=== PATIENT | male | born 2000 | race Caucasian/White ===

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

== ENCOUNTER 2021-12-06 14:37 | Inpatient (IN) ==
[2021-12-06 16:16] LABS: ABS Basophils 0.1 10^3/ul (0-0.2); ABS Eosinophils 0.1 10^3/ul (0-0.6); ABS Lymphocytes 1.8 10^3/ul (1.0-4.8); ABS Monocytes 0.6 10^3/ul (0-0.8); ABS Neutrophils 3.9 10^3/ul (1.5-7.7); Eosinophil % 1.7 %; Hematocrit 46 % (42-52); Hemoglobin 15.7 g/dL (14.0-18.0); Lymphocyte % 27.5 %; Mean Corpuscular HGB Conc 34 g/dL (31-36); Mean Corpuscular Hemoglobin 30 pg (27-31); Mean Corpuscular Volume 89 fL (80-94); Mean Platelet Volume 8.4 fL (7.4-10.4); Platelet Count 236 10^3/uL (150-450); Red Cell Distribution Width 14 % (10-15); White Blood Count 6.4 10^3/uL (3.5-10.8)
[2021-12-06 16:37] LABS: Urine Benzodiazepine Screen None Detected (None Detect); Urine Cannabinoids Screen Presumptive Positive (None Detect); Urine Opiates Screen None Detected (None Detect)
[2021-12-06 16:41] LABS: Urine Appearance Cloudy; Urine Bilirubin Negative (Negative); Urine Blood Trace (Intact) (Negative); Urine Color Straw; Urine Glucose Negative (Negative); Urine Ketones Negative (Negative); Urine Nitrite Negative (Negative); Urine Protein Negative (Negative); Urine Urobilinogen 0.2 (Negative) (Negative)
[2021-12-06 16:48] LABS: Urine Amorphous Crystals Present (Absent); Urine Bacteria Absent (Absent); Urine Red Blood Cell 1+(3-5/hpf) (Absent); Urine White Blood Cell Absent (Absent)
[2021-12-06 16:53] LABS: ALT 20 U/L (7-52); AST 25 U/L (13-39); Acetaminophen < 15 mcg/mL; Albumin 5.1 g/dL (3.2-5.2); Albumin/Globulin Ratio 2.1 (1-3); Alcohol, S < 13 mg/dL (<13); Alkaline Phosphatase 51 U/L (35-149); Anion Gap 9 mmol/L (2-11); Blood Urea Nitrogen 9 mg/dL (6-24); CO2 Carbon Dioxide 24 mmol/L (22-32); Chloride 105 mmol/L (101-111); Globulin 2.4 g/dL (2-4); Glucose 76 mg/dL (70-100); Potassium 4.3 mmol/L (3.5-5.0); Salicylate < 2.50 mg/dL (<30); Sodium 138 mmol/L (135-145); Total Protein 7.5 g/dL (6.4-8.9); eGFR CKD-EPI 131.1 (>60)
[2021-12-06 17:04] LABS: TSH Ultra Thyroid Stim Horm 1.04 mcIU/mL (0.34-5.60)
[2021-12-06] MEDS ORDERED: Al Hydrox/Mg Hydrox/Simet LIQ 30 ML UDC PO PRN (18:18)
[2021-12-06] MEDS: Nicotine GUM 2MG FRUIT FLAVOR PO PRN (20:38)
[2021-12-07] MEDS: Vitamin THERAPEUTIC TAB PO SCH (07:53)
[2021-12-07] MEDS: Nicotine PATCH 14 MG/24 HR PATCH TRANSDERM SCH (07:54)
[2021-12-07] MEDS: Nicotine GUM 2MG FRUIT FLAVOR PO PRN ×3 (07:55→19:04)
[2021-12-08] MEDS: Nicotine GUM 2MG FRUIT FLAVOR PO PRN ×3 (03:42→20:24)
[2021-12-08] MEDS: Vitamin THERAPEUTIC TAB PO SCH (07:35)
[2021-12-08] MEDS: Nicotine PATCH 14 MG/24 HR PATCH TRANSDERM SCH (07:36)
[2021-12-08 07:55] LABS: HDL Cholesterol 52.1 mg/dL
[2021-12-09] MEDS: Nicotine PATCH 14 MG/24 HR PATCH TRANSDERM SCH (07:18)
[2021-12-09] MEDS: Vitamin THERAPEUTIC TAB PO SCH (07:21)
[2021-12-09] MEDS: Nicotine GUM 2MG FRUIT FLAVOR PO PRN ×5 (07:22→20:47)
[2021-12-10] MEDS: Vitamin THERAPEUTIC TAB PO SCH (07:40)
[2021-12-10] MEDS: Nicotine GUM 2MG FRUIT FLAVOR PO PRN ×4 (07:40→20:11)
[2021-12-10] MEDS: Nicotine PATCH 14 MG/24 HR PATCH TRANSDERM SCH (08:59)
[2021-12-11] MEDS: Vitamin THERAPEUTIC TAB PO SCH (08:08)
[2021-12-11] MEDS: Nicotine GUM 2MG FRUIT FLAVOR PO PRN ×4 (08:09→17:29)
[2021-12-11] MEDS: Nicotine PATCH 14 MG/24 HR PATCH TRANSDERM SCH (08:10)
[2021-12-12] MEDS: Nicotine GUM 2MG FRUIT FLAVOR PO PRN ×6 (06:11→20:15)
[2021-12-12] MEDS: Vitamin THERAPEUTIC TAB PO SCH (08:30)
[2021-12-12] MEDS: Nicotine PATCH 14 MG/24 HR PATCH TRANSDERM SCH (08:31)
[2021-12-12] MEDS ORDERED: COVID-19 VACCINE, MRNA(PFIZER)/PF 30 MCG/0.3 ML IM ONE (10:30)
[2021-12-13] MEDS: Nicotine GUM 2MG FRUIT FLAVOR PO PRN ×2 (04:36→08:38)
[2021-12-13] MEDS: Vitamin THERAPEUTIC TAB PO SCH (08:37)
[2021-12-13 08:38] VITALS: BP 117/66
[2021-12-13] MEDS: Nicotine PATCH 14 MG/24 HR PATCH TRANSDERM SCH (08:38)
== END 2021-12-13 10:15 | disposition home or self-care (01) | DRG 750 ==
LOC: ED 14:37 → BSU 18:18
PROVIDERS: ADMIT Psychiatry & Neurology Psychiatry; ATTEND Psychiatry & Neurology Psychiatry

== ENCOUNTER 2023-05-23 13:00 | Inpatient (IN) ==
[2023-05-23 14:28] LABS: ABS Eosinophils 0.1 10^3/uL (0.0-0.5); ABS Lymphocytes 1.8 10^3/uL (1.0-4.8); ABS Monocytes 0.6 10^3/uL (0.0-1.1); ABS Neutrophils 5.9 10^3/uL (1.5-7.6); Eosinophil % 1.1 %; Hematocrit 44.1 % (38-53); Lymphocyte % 20.7 %; Mean Corpuscular Hemoglobin 30.5 pg (27-33); Mean Corpuscular Hgb Conc 34.1 g/dL (31-36); Mean Corpuscular Volume 89.3 fL (80-97); Mean Platelet Volume 7.5 fL (7.5-11.2); Platelet Count 233 10^3/uL (150-450); Red Blood Count 4.93 10^6/uL (4.06-5.63); Red Cell Distribution Width 13.8 % (12-17); White Blood Count 8.5 10^3/uL (3.6-10.2)
[2023-05-23 14:29] LABS: Urine Appearance Clear; Urine Bilirubin Negative (Negative); Urine Blood Negative (Negative); Urine Color Yellow; Urine Glucose Negative (Negative); Urine Ketones Negative (Negative); Urine Nitrite Negative (Negative); Urine Protein Negative (Negative); Urine Specific Gravity 1.012 (1.002-1.030); Urine Urobilinogen Negative (Negative)
[2023-05-23 14:57] LABS: ALT 24 U/L (7-52); AST 17 U/L (13-39); Albumin 4.7 g/dL (3.2-5.2); Albumin/Globulin Ratio 2.1 (1-3); Alkaline Phosphatase 52 U/L (35-149); Anion Gap 6 mmol/L (2-16); Blood Urea Nitrogen 11 mg/dL (6-24); CO2 Carbon Dioxide 28 mmol/L (22-32); Calcium 9.6 mg/dL (8.6-10.3); Chloride 103 mmol/L (101-111); Creatinine, Serum 0.77 mg/dL (0.67-1.17); Globulin 2.2 g/dL (2-4); Glucose 80 mg/dL (70-100); Potassium 3.9 mmol/L (3.5-5.0); Sodium 137 mmol/L (135-145); Total Bilirubin 0.6 mg/dL (0.2-1.0); Total Protein 6.9 g/dL (6.4-8.9); eGFR CKD-EPI 129.8 (>60)
[2023-05-23 15:26] LABS: TSH Ultra Thyroid Stim Horm 0.84 mcIU/mL (0.34-5.60)
[2023-05-23 16:14] LABS: Urine Benzodiazepine Screen None Detected (None Detect); Urine Cannabinoids Screen Presumptive Positive (None Detect); Urine Opiates Screen None Detected (None Detect)
[2023-05-23 19:32] LABS: Acetaminophen < 15 mcg/mL; Alcohol, S < 13 mg/dL (<13); Salicylate < 2.50 mg/dL (<30)
[2023-05-23] MEDS ORDERED: Nicotine Lozenge mini 2 MG LOZNG.MINI MT PRN (23:00)
[2023-05-24] MEDS: Vitamin THERAPEUTIC TAB PO SCH (09:49)
[2023-05-24] MEDS: Nicotine GUM 2MG FRUIT FLAVOR PO PRN (10:46)
[2023-05-25] MEDS: Al Hydrox/Mg Hydrox/Simet LIQ 30 ML UDC PO PRN (09:22)
[2023-05-25] MEDS: Nicotine PATCH 21 MG/24 HR PATCH TRANSDERM SCH (13:35)
[2023-05-25] MEDS: Nicotine PATCH 21 MG/24 HR PATCH ONE (15:39)
[2023-05-27 10:39] VITALS: BP 101/72
== END 2023-05-27 13:47 | disposition home or self-care (01) | DRG 885 ==
LOC: ED 13:00 → EDHOLD 22:52 → BSU 05-24 00:43
PROVIDERS: ADMIT Psychiatry & Neurology Psychiatry; ATTEND Student in an Organized Health Care Education/Training Program

== ENCOUNTER 2023-11-06 10:23 | Inpatient (IN) ==
[2023-11-06 11:56] LABS: Urine Appearance Extra Turbid; Urine Bilirubin Negative (Negative); Urine Blood Negative (Negative); Urine Color Yellow; Urine Glucose Negative (Negative); Urine Ketones Negative (Negative); Urine Nitrite Negative (Negative); Urine Protein Negative (Negative); Urine Specific Gravity 1.016 (1.002-1.030); Urine Urobilinogen 1+ (Negative); Urine pH 7.5 (5.0-8.0)
[2023-11-06 12:27] LABS: Urine Benzodiazepine Screen None Detected (None Detect); Urine Cannabinoids Screen Presumptive Positive (None Detect); Urine Opiates Screen None Detected (None Detect)
[2023-11-06] MEDS ORDERED: Al Hydrox/Mg Hydrox/Simet LIQ 30 ML UDC PO PRN (12:34)
[2023-11-06 13:30] LABS: ABS Basophils 0.1 10^3/uL (0.0-0.1); ABS Eosinophils 0.1 10^3/uL (0.0-0.5); ABS Lymphocytes 1.5 10^3/uL (1.0-4.8); ABS Monocytes 0.5 10^3/uL (0.0-1.1); ABS Neutrophils 5.4 10^3/uL (1.5-7.6); Eosinophil % 1.6 %; Hematocrit 44.8 % (38-53); Hemoglobin 15.6 g/dL (13.2-16.3); Lymphocyte % 19.9 %; Mean Corpuscular Hemoglobin 30.5 pg (27-33); Mean Corpuscular Hgb Conc 34.7 g/dL (31-36); Mean Corpuscular Volume 87.9 fL (80-97); Mean Platelet Volume 8.7 fL (7.5-11.2); Platelet Count 211 10^3/uL (150-450); Red Cell Distribution Width 12.9 % (12-17); White Blood Count 7.7 10^3/uL (3.6-10.2)
[2023-11-06 13:54] LABS: ALT 8 U/L (7-52); AST 13 U/L (13-39); Acetaminophen < 15 mcg/mL; Albumin 4.9 g/dL (3.2-5.2); Albumin/Globulin Ratio 2.1 (1-3); Alcohol, S < 13 mg/dL (<13); Alkaline Phosphatase 56 U/L (35-149); Anion Gap 10 mmol/L (2-16); Blood Urea Nitrogen 9 mg/dL (6-24); CO2 Carbon Dioxide 26 mmol/L (22-32); Calcium 9.7 mg/dL (8.6-10.3); Chloride 102 mmol/L (101-111); Creatinine, Serum 0.82 mg/dL (0.67-1.17); Globulin 2.3 g/dL (2-4); Glucose 116 mg/dL (70-100); Potassium 4.1 mmol/L (3.5-5.0); Salicylate < 2.50 mg/dL (<30); Sodium 138 mmol/L (135-145); Total Bilirubin 0.7 mg/dL (0.2-1.0); Total Protein 7.2 g/dL (6.4-8.9); eGFR CKD-EPI 126.6 (>60)
[2023-11-07] MEDS ORDERED: Al Hydrox/Mg Hydrox/Simet LIQ 30 ML UDC PO PRN (05:50)
[2023-11-07] MEDS: Nicotine GUM 2MG FRUIT FLAVOR PO PRN (13:01)
[2023-11-12 10:27] VITALS: BP 116/75
== END 2023-11-12 13:30 | disposition home or self-care (01) | DRG 750 ==
LOC: ED 10:23 → EDHOLD 12:34 → BSU 14:25
PROVIDERS: ADMIT Psychiatry & Neurology Psychiatry; ATTEND Psychiatry & Neurology Psychiatry